=== PATIENT | female | born 1950 | race Caucasian/White ===

== ENCOUNTER 2018-01-17 23:42 | Inpatient (IN) | payer BC, OTHER ==
[~2018-01-17] VITALS: Ht 154.9 cm; Wt 48.2 kg
[2018-01-17 23:45] VITALS: BP_SYST 134
[2018-01-18] MEDS ORDERED: MORPHINE 2 MG/ML INJ. SYRINGE IVP ONE ×3 (00:15→02:00)
[2018-01-18 00:19] LABS: BILIRUBIN,URINE NEGATIVE (NEGATIVE); BLOOD, URINE 3+ (NEGATIVE); CLARITY/URINE HAZY (CLEAR); COLOR,URINE YELLOW (YELLOW); GLUCOSE,URINE NEGATIVE (NEGATIVE); KETONES,URINE NEGATIVE (NEGATIVE); LEUKOCYTE ESTERASE ,URINE NEGATIVE (NEGATIVE); NITRITE, URINE NEGATIVE (NEGATIVE); PROTEIN URINE NEGATIVE (NEGATIVE); UROBILINOGEN,URINE 0.2 (0.2-1.0)
[2018-01-18 00:38] LABS: BACTERIA,URINE MODERATE /HPF (None Seen); URINE AMORPHOUS PHOSPHATES 2+ /HPF (None Seen); WBC,URINE 0-3 /HPF (0-3)
[2018-01-18 00:49] LABS: BASOPHILS # (AUTO) 0.1 K/uL (0.0-0.2); BASOPHILS % (AUTO) 0.6 % (0.0-2.0); EOSINOPHILS # (AUTO) 0.1 K/uL (0.0-0.4); EOSINOPHILS % (AUTO) 1.5 % (0.0-4.0); HEMATOCRIT 38.9 % (36-48); HEMOGLOBIN 13.4 g/dL (12.0-16.0); LYMPHOCYTES # (AUTO) 0.9 K/uL (1.0-5.5); LYMPHOCYTES % (AUTO) 11.1 % (20.5-51.5); MEAN CORPUSCULAR HEMOGLOBIN 31 pg (27-31); MEAN CORPUSCULAR HGB CONC 35 % (32-36); MEAN CORPUSCULAR VOLUME 90 fL (79.0-98.0); MONOCYTES # (AUTO) 0.6 K/uL (0.0-1.0); MONOCYTES % (AUTO) 6.7 % (1.7-9.3); NEUTROPHILS # (AUTO) 6.6 K/uL (1.8-7.7); NEUTROPHILS % (AUTO) 80.1 % (40.0-70.0); PLATELET COUNT (AUTO) 259 K/uL (130-430); RED BLOOD CELL COUNT(AUTO) 4.35 MIL/uL (4.2-6.2); RED CELL DISTRIBUTION WIDTH 11.4 % (9.0-15.0); WHITE BLOOD COUNT (AUTO) 8.3 K/uL (4.8-10.8)
[2018-01-18 00:53] LABS: CALCIUM 9.9 mg/dL (8.4-11.0); CREATININE 0.88 mg/dL (0.55-1.30); POTASSIUM 3.7 mmol/L (3.5-5.1)
[2018-01-18 00:57] LABS: ALBUMIN 3.5 g/dL (3.4-4.8); TOTAL BILIRUBIN 0.5 mg/dL (0.0-1.0)
[2018-01-18] MEDS ORDERED: NACL 0.9% 1,000 ML IV ONE (02:00)
[2018-01-18] MEDS ORDERED: BIO IDENTICAL (02:15)
[2018-01-18] MEDS ORDERED: THYR81.2 PO (02:15)
[2018-01-18] MEDS ORDERED: BUPR300T55 PO (02:15)
[2018-01-18] MEDS ORDERED: PROP20TA7 PO (02:15)
[2018-01-18] MEDS ORDERED: KCL 10 mEq in D5/0.45NS 1000mL 1,000 ML IV SCH (02:30)
[2018-01-18] MEDS ORDERED: ONDANSETRON HCL 4 MG/2 ML VIAL IVP PRN ×2 (02:30→17:30)
[2018-01-18] MEDS ORDERED: metroNIDAZOLE 500 mg/NS 100 ML IV ONE (02:30)
[2018-01-18] MEDS ORDERED: ONDANSETRON HCL 4 MG/2 ML VIAL IVP ONE (02:45)
[2018-01-18 03:28] VITALS: BP_SYST 162
[2018-01-18 03:30] VITALS: BP_SYST 138
[2018-01-18] MEDS: KCL 20 mEq in NS 1000 mL 1,000 ML IV SCH ×3 (03:49→18:10)
[2018-01-18] MEDS: MORPHINE 2 MG/ML INJ. SYRINGE IVP PRN ×3 (04:58→16:19)
[2018-01-18 08:00] VITALS: BP_SYST 128
[2018-01-18] MEDS ORDERED: GASTROGRAFIN 120 ML ONE ×2 (08:38→10:47)
[2018-01-18] MEDS ORDERED: PANTOPRAZOLE SODIUM 40 MG/VIAL (PROTONIX) IVP SCH (09:00)
[2018-01-18] MEDS ORDERED: ACETAMINOPHEN 650 MG SUPP.RECT RC PRN (13:00)
[2018-01-18 13:49] VITALS: BP_SYST 140
[2018-01-18 16:08] LABS: INR 3.8 (0.8-1.2); PROTHROMBIN TIME 39.6 SECS (9.5-12.5)
[2018-01-18 16:16] VITALS: BP_SYST 148
[2018-01-18 17:08] LABS: INR 4.1 (0.8-1.2); PROTHROMBIN TIME 42.4 SECS (9.5-12.5)
[2018-01-18] MEDS ORDERED: HYDROmorphone 2 MG/ML VIAL IVP PRN ×2 (17:15→17:30)
[2018-01-18] MEDS ORDERED: PROMETHAZINE HCL 25 MG/ML AMP IVP PRN (19:30)
[2018-01-18 20:55] VITALS: BP_SYST 147
[2018-01-18] MEDS ORDERED: LEVOFLOXACIN 500 MG/D5W 100 ML IV SCH (21:00)
== END 2018-01-18 22:15 | disposition short-term general hospital (02) | DRG 389 ==
LOC: SED 23:42 → STU 01-18 02:29
PROVIDERS: ADMIT Internal Medicine; ATTEND Internal Medicine
DX: K56.601 Complete intestinal obstruction, unspecified as to cause (principal); D68.2 Hereditary deficiency of other clotting factors; E03.9 Hypothyroidism, unspecified; F41.9 Anxiety disorder, unspecified; R31.29 Other microscopic hematuria; F32.9 Major depressive disorder, single episode, unspecified; Z80.0 Family history of malignant neoplasm of digestive organs; Z90.710 Acquired absence of both cervix and uterus; Z88.1 Allergy status to other antibiotic agents
CPT/HCPCS: 36415; 71045; 74250-TC; 80053; 81000-TC; 83690-TC; 85025; 85610-TC; 85730-TC; 87040-TC; 93005; 96365; 96367; 96375; 99285; C9113; J1170; J1956; J2270; J2405; J2550; J3480; J3490; J7030; Q9963